=== PATIENT | male | born 1955 | race Asian ===

== ENCOUNTER 2024-06-18 11:55 | Inpatient (IN) | payer MEDICARE, SELFPAY ==
[2024-06-17] VITALS (10 sets, daily range): BP systolic 112–155; BP diastolic 63–99; BMI 26.3; BMI 25.1
[2024-06-17 11:30] LABS: % Basophils 0.3 % (0-2); % Eosinophils 0.6 % (0-6); % Immature Granulocytes 0.3 % (0-0.5); % Lymphocytes 11.8 % (20.5-51.1); % Monocytes 3.8 % (1.7-9.3); % Neutrophils 83.2 % (42.2-75.2); Absolute Eosinophils 0.1 10^3/uL (0-0.7); Absolute Lymphocytes 1.3 10^3/uL (1.2-3.4); Absolute Monocytes 0.4 10^3/uL (0.1-0.6); Hematocrit 40.1 % (39.0-52.0); Hemoglobin 12.6 g/dL (13.0-18.0); Mean Corp Hgb Conc. 31.4 g/dL (33.0-37.0); Mean Corpuscular Hgb 24.3 pg (27.0-31.0); Mean Corpuscular Volume 77.4 fL (80.0-94.0); Mean Platelet Volume 8.9 fL (7.4-10.4); Nucleated Red Blood Cells % 0 % (-); Platelet Count 277 10^3/uL (130-400); Red Blood Cell Count 5.18 10^6/uL (4.70-6.10); Red Cell Dist. Width 15.4 % (11.5-14.5); White Blood Cell Count 10.8 10^3/uL (4.8-10.8)
[2024-06-17 11:42] LABS: ALT (SGPT) 44 U/L (0-50); AST (SGOT) 29 U/L (17-59); Albumin 4.4 g/dl (3.5-5.0); Alkaline Phosphatase 66 U/L (38-126); Blood Urea Nitrogen 18 mg/dl (9-20); Calcium 8.9 mg/dl (8.4-10.2); Carbon Dioxide 28 mmol/L (22-30); Chloride 102 mmol/L (98-107); Glucose 125 mg/dl (70-99); Lipase 142 U/L (23-300); Potassium 4.1 mmol/L (3.5-5.1); Sodium 138 mmol/L (135-145); Total Bilirubin 0.5 mg/dl (0.2-1.3); eGFR > 60.00
--- NOTE | 2024-06-17 13:36 | ED.GENMED ---
History of Present Illness
General
Chief Complaint: Abdominal Pain
Time Seen by Provider: 06/17/24 13:10
History of Present Illness
History of Present Illness:
68-year-old male presents to the emergency department for evaluation of right lower quadrant pain and abdominal distention that began this morning. Returned last night from a long international trip to [facility] in [facility]. Denies any fevers or
chills. Had 1 episode of vomiting, denies any diarrhea. No prior abdominal surgical history.
Review of Systems
Review of Systems
Allergies reviewed?: Yes
All Other Systems: ROS reviewed and negative except as documented in HPI and ROS
Phy Exam
Physical Exam
Physical Exam:
GEN: Well appearing, NAD, WDWN
HEENT: Oral mucosa moist, no scleral icterus
Cardiac: Regular rate
Lung: No respiratory distress, no tachypnea
Abdomen: Soft, mild distention noted, diffuse tenderness but predominantly in the right lower quadrant
MSK: No gross deformity or injuries
Skin: Good color, no pallor or jaundice, no rashes
Neuro: AO x3, moves all extremities freely
Psych: Calm, cooperative
Course
Orders/Labs/Results
Orders:
Orders
06/17/24 11:19
C-Reactive Protein Urgent
Comment: ADD ON
CMP [Comprehensive Metabolic Panel] Urgent
Complete Blood Count/With Diff Urgent
Lipase Urgent
06/17/24 13:35
CT Abd/Pel (IV only)-DH only Urgent
Comment:
Reason For Exam: RLQ pain
06/17/24 Dinner
NPO
Allow oral meds: No
Allow clear liquids: No
06/17/24 15:32
Add On- LAB Urgent
Tests Added?: CRP
06/17/24 15:47
Urinalysis Reflex To Culture Urgent
Date Specimen was Collected: 06/17/24
Time Specimen was Collected: 15:46
06/17/24 16:20
Piperacillin/Tazo 3.375 Gram [Zosyn] 3.375 gram in 50 ml IV NOW
06/17/24 17:21
Lidocaine HCl/Pf [Xylocaine-Mpf 1% Vial] 50 mg .ROUTE .STK-MED ONE
Propofol [Diprivan] 20 ml .ROUTE .STK-MED
Rocuronium [place] [Rocuronium] 50 mg .ROUTE .STK-MED ONE
06/17/24 17:25
HYDROmorphone [Dilaudid] 0.25 mg IV PACU-Q5MPRN PRN
HYDROmorphone [Dilaudid] 0.5 mg IV PACU-Q5MPRN PRN
Meperidine [Demerol] 12.5 mg IV PACU-Q5MPRN PRN
Ondansetron Injectable [Zofran] 4 mg IV PACU-ONCEPRN PRN
Prochlorperazine [Compazine] 5 mg IV PACU-ONCEPRN PRN
Notify MD As Directed
Notify physician if: for SDS patients with known or suspected sleep obstructive sleep apnea, monitor in the
PACU.
Notify MD for any apneic/desaturation episodes
O2 Therapy [RESP] Urgent
Titrate/Wean O2 to maintain O2 sat greater than (%): 92
Special Instructions: -Provide supplemental oxygen to achieve O2 sat of 92% or greater.
-After 15 min, may wean O2 and discontinue if patient is able to maintain O2 sat of 92%
or greater during recovery period.
If patient is a discharge home, without oxygen therapy, notify anestheiologist if
unable to maintain O2 SAT of 92% or greater on room air for MD clearance.
06/17/24 17:30
Normosol (Mult Electrolytes) [Normosol-R/Plasmalyte-A] 1,000 ml IV PER PROTOCOL
06/17/24 17:33
Admit Patient As Directed
Co-Sign Provider:
Level of Care: Post Proc/Surg Recovery
Assign to:: Medical/Surgical
Physician / Group: Jalil/ surg
Diagnosis: Acute appendicitis
Reason for Overnight Stay: Standard of Care
Code Status As Directed
Resuscitation Status: Full Code
Acetaminophen [Tylenol] 650 mg PO Q4HPRN PRN
HYDROmorphone [Dilaudid] 0.5 mg IV Q4HPRN PRN
Ketorolac [Toradol] 10 mg IV Q6HPRN PRN
Ondansetron Injectable [Zofran] 4 mg IV Q6HPRN PRN
Oxycodone [Roxicodone] 5 mg PO Q4HPRN PRN
Activity As Directed
Activity Level: Out of Bed-Early Mobility
Anti-embolism (YELENA) Hose As Directed
Type: Thigh high
Intake/ Output As Directed
Frequency: Per unit guidelines
Pneumatic Compression Sleeves As Directed
Type: Knee high
Vital Signs As Directed
Frequency: Per unit guidelines
06/17/24 17:34
PRN Pain Medication Management As Directed
May give lesser potent ordered pain med per pt: Yes
preference::
Protocol:: Medication orders for pain may be administered in a
manner that supports deferring to patient preference
when the pt is:
- Requesting an ordered lesser potent pain medication.
Least to most potent pain medications are defined
as: acetaminophen < NSAID < tramadol < opioids
(morphine, oxycodone, hydromorphone).
- Requesting a lesser dose of the same medication IF
ORDERED.
- Requesting a less intrusive route of administration
if both routes are prescribed by the provider (PO <
IV).
Rx Incentive Spirometry [RESP] Routine
Frequency: q1h while awake
# of times per hour: 10
DX Deep Vein Thrombosis Video Routine
06/17/24 17:45
0.9% Sodium Chloride 1000 ml [Nss] 1,000 ml IV 80 mls/hr
06/17/24 22:00
Piperacillin/Tazo 3.375 Gram [Zosyn] 3.375 gram in 50 ml IV Q6H
Abnormal Lab Results
06/17/24
11:19
Hgb 12.6 L g/dL
(13.0-18.0)
MCV 77.4 L fL
(80.0-94.0)
MCH 24.3 L pg
(27.0-31.0)
MCHC 31.4 L g/dL
(33.0-37.0)
RDW 15.4 H %
(11.5-14.5)
Absolute Neuts (auto) 9.0 H 10^3/uL
(1.4-6.5)
Neutrophils % 83.2 H %
(42.2-75.2)
Lymphocytes % 11.8 L %
(20.5-51.1)
Glucose 125 H mg/dl
(70-99)
06/17/24 11:19
06/17/24 11:19
Vital Signs
Initial and Last Documented VS:
Initial Vital Signs
Temp Pulse Resp BP Pulse Ox
98.0 F 92 16 155/99 100
06/17/24 11:12 06/17/24 11:12 06/17/24 11:12 06/17/24 11:12 06/17/24 11:12
Last Documented Vital Signs
Temp Pulse Resp BP Pulse Ox
99.8 F 102 16 136/84 93
06/17/24 19:47 06/17/24 19:47 06/17/24 19:47 06/17/24 19:47 06/17/24 19:47
MDM/Problems Addressed
MDM/Problems Addressed:
Imaging reveals acute appendicitis. Will be admitted to the surgical service for further management
*Critical Care Note
Total Time (30-74mins, 75-104mins- exclusive of procedures): Not Applicable
ED Attending Note
-
Portions of this chart may have been created with voice recognition software.� Occasional wrong word or��sound alike� substitutions may have occurred due to the inherent limitations of voice recognition software.
Discharge Plan
Departure
Patient Disposition: Admit
Date of Disposition: 06/17/24
Time of Disposition: 16:28
Presentation/result/management discussed w/ accepting MD/DO: General Surgery
Discharge Problem:
Acute appendicitis
Interventions
Interventions:
*Risk Screen - Suicide Last Done: 06/17/24 19:43
*General Assessment Last Done: 06/17/24 13:38
*Neglect/Abuse Screening Last Done: 06/17/24 11:12
ED- Fall Risk Assessment Last Done: 06/17/24 13:37
*ED COVID-19 Vaccine History Last Done: 06/17/24 19:43
*Nursing Disposition Last Done: 06/17/24 19:26
DS-Pfacmz-Auhfuanjpe Assessment Last Done: 06/17/24 13:38
Discharge Date and Time
Discharge Date/Time: 06/17/24 19:26
[2024-06-17 15:55] LABS: Urine Albumin Negative (Neg - Trace); Urine Bilirubin Negative (Negative); Urine Character Clear (Clear); Urine Color Straw; Urine Glucose Negative (Negative); Urine Ketone Negative (Negative); Urine Leukocyte Negative (Negative); Urine Nitrite Negative (Negative); Urine Occult Blood Negative (Negative); Urine Urobilinogen Negative (Neg - 1+)
[2024-06-17] MEDS: ZOSYN 50 IV ×2 (16:28→22:04)
--- NOTE | 2024-06-17 17:15 | W.SUR.PREOP ---
Pre-Operative Surgical Note
-
I have examined this patient prior to the performance of the scheduled procedure.
The patient's condition is unchanged from the time of the current History and
Physical and the patient is able to undergo the scheduled procedure.
--- NOTE | 2024-06-17 17:33 | HPS.HSE ---
Addendum entered and electronically signed by Dylan Jimenes MD 06/17/24 19:52:
I saw and examined the patient independently.
The Product Technology Scientist's note was reviewed and I agree with the note, assessment and plan except where noted below.
Comment: This is a 68-year-old male with no significant past medical or surgical history who presents with 1 day history of right lower quadrant abdominal pain found to have acute appendicitis on CT. His exam is fairly concerning with significant
focal tenderness but he is soft and the other quadrants. I am somewhat suspicious of perforated appendicitis given his exam though his imaging is fairly reassuring.
Given OR time constraints, will plan for laparoscopic appendectomy in the OR tomorrow.
N.p.o., IV fluids, IV Zosyn.
Pain control
Admit to general surgery service.
Risks/Benefits/Alternatives, expected postoperative course and possible complications (bleeding, infection, injury to surrounding structures, acute/chronic pain) discussed at length. Patient wishes to proceed with surgery. All questions answered.
Consent obtained.
I spent 75 minutes in total for the care of this patient today including direct patient care and counseling, reviewing labs, imaging, coordination of care, as well as documentation.
Original Note:
Family Physician
-
Family Physician: Olu Singleton
Chief Complaint
-
RLQ pain
History of Present Illness
68 yo male with no prior surgical history on no home medications who presents with RLQ abdominal pain and distention since early this morning. He notes that the pain is quite severe with significant tenderness present on exam He denies fevers or
chills. He does note he vomited x1 but denies active nausea. He denies bowel changes.
Medical History
Past Medical History
Past Medical History: Reports None
Past Surgical History: Reports None and Other (colonoscopy 2019 with polypectomy)
Social History
Tobacco: Non-smoker
Alcohol: None
Family History
Family History: Not pertinent
Allergies / Home Medications
Allergies reflects when Allergies were last updated in [facility].
Home Medications with original date entered in [facility]
Allergy/Medication List:
Patient Allergies
Allergy/AdvReac Type Severity Reaction Status Date / Time
No Known Allergies Allergy Unverified 06/17/24 11:11
�Medication �Instructions �Recorded �Confirmed �Type
No Meds [No Current Medications] 06/17/24 06/17/24 History
Review of Systems
-
History Source: Patient
A 12 point ROS was completed and negative except as noted: Yes
Physical Exam
Vital Signs
Vital Signs
Temp Pulse Resp BP Pulse Ox
98.0 F 92 16 119/74 100
06/17/24 11:12 06/17/24 11:12 06/17/24 11:12 06/17/24 17:00 06/17/24 11:12
Physical Exam
General: Well Developed and Well Nourished
HEENT: Moist mucous membranes
Respiratory: Non Labored Respirations
GI: Soft, Tender (RLQ, +rovsing sign) and Distended
Skin: Warm and Dry
Neuro: Awake, Alert and AO x 3
Laboratory Results
-
06/17/24 11:19
06/17/24 11:19
Laboratory Results
Total Bilirubin 0.5 mg/dl (0.2-1.3) 06/17/24 11:19
AST 29 U/L (17-59) 06/17/24 11:19
ALT 44 U/L (0-50) 06/17/24 11:19
Alkaline Phosphatase 66 U/L (38-126) 06/17/24 11:19
Lipase 142 U/L (23-300) 06/17/24 11:19
Data Reviewed
-
CT Scan: Image Personally Visualized and interpreted, Report Reviewed by me, Discussed with Physician, Discussed with Nurse and Discussed with Patient
Lab Data: Labs Reviewed by me, Discussed with Physician and Discussed with Patient
Old Records: Reviewed
Impression/Plan
-
IMPRESSION:
68 yo male presenting with RLQ and vomiting with exam and CT imaging consistent with acute appendicitis. No leukocytosis or fevers. ABX initiated in the ED
PLAN:
NPO for OR tentatively later this evening vs tomorrow morning
Analgesics and Antiemetics prn
Continue IV ABX with IV Zosyn
IV NSS at 80ml/hr while NPO
SCDS for VTE ppx
[2024-06-17 17:46] LABS: C-Reactive Protein < 5.00 mg/L (0.0-10.00)
[2024-06-17] MEDS: NSS 1000 IV (20:26)
[2024-06-18] VITALS (11 sets, daily range): BP systolic 10–131; BP diastolic 59–82
[2024-06-18] MEDS: ZOSYN 50 IV ×4 (04:10→23:15)
--- NOTE | 2024-06-18 09:36 | W.IMMPOSTOP ---
Surgical Immed Post Op Note
-
Primary Surgeon: Dylan Jimenes MD
Assisting Surgeon: None
Pre-op Diagnosis: Acute appendicitis
Post-op Diagnosis: Perforated appendicitis, intra-abdominal abscess
Procedure Performed:
1. Laparoscopic appendectomy
2. Drainage of an intra-abdominal abscess
Anesthesia Type: General
Specimen / Cultures:
1. Appendix
2. Right lower quadrant abscess
Estimated Blood Loss: 7 cc
Complications: None
Operative Findings: Acutely inflamed suppurative and perforated appendicitis with right lower quadrant intra-abdominal abscess. Abscess drained and cultures taken. Base involved, taken with a 45 mcgregor load on the Endo CANELO stapler. 19 [place] round
Zan drain placed through the left lower quadrant port across the pelvis and up the right colic gutter. This was secured to the skin with a 2-0 nylon suture.
POST OP PLAN:
Imaging: None
Labs: Routine AM
Diet: Will start on clears, high risk for developing an ileus
Analgesia: Tylenol 650mg q6 Svetlana, Toradol as needed, Dilaudid 0.5mg q2h PRN
Neuro/vascular checks: q4h
AC/AP: Hold Therapeutic AC, Ok for DVT PPx
Activity: Ad Elisha
Wound/Incisions/Drains: Routine, SKY to bulb suction
Abx: Continue antibiotics x 4 days
Dispo: RNF, anticipate will 1-2 more days in the hospital pending clinical course.
--- NOTE | 2024-06-18 09:44 | OR.RPT ---
Operative Report
Operative Report
Patient Name: Zach Giraldo
: 1955
Date of Operation: 06/18/2024
Pre-op Diagnosis: Acute appendicitis
Post-op Diagnosis: Perforated appendicitis, intra-abdominal abscess
Procedure Performed:
1. Laparoscopic appendectomy
2. Drainage of an intra-abdominal abscess
Surgeon(s):
Dr. Jimenes
Checker(s):
None
Anesthesia Type: General
Specimen / Cultures:
1. Appendix
2. Right lower quadrant abscess
Estimated Blood Loss: 7 cc
Drains/Lines/Implants: 19 Citizen [place] round Zan drain
Complications: None
HPI/Surgical Indications:
This is a 68-year-old male who presents with a 1 day history of abdominal pain. Exam, labs and imaging are consistent with acute appendicitis. Risks/Benefits/Alternatives were discussed at length, and the patient agreed to proceed with surgery.
Operative Findings: Acutely inflamed suppurative and perforated appendicitis with right lower quadrant intra-abdominal abscess. Abscess drained and cultures taken. Base involved, taken with a 45 blanco load on the Endo CANELO stapler. 19 [place] round
Zan drain placed through the left lower quadrant port across the pelvis and up the right colic gutter. This was secured to the skin with a 2-0 nylon suture.
Procedure Description:
The patient was placed in the supine position, with the left arm tucked, and general anesthesia was induced. The abdomen was prepared and draped in a sterile fashion so as to expose the entire abdomen. A surgical time out was taken. Abdominal access
was obtained with an 12 mm infra-umbilical Moreno Entry. After confirming no injury on entrance, two additional 5mm ports were placed in the suprapubic area just off midline and in the left lower quadrant. The patient was placed in Trendelenberg
with the right slightly up . The appendix was identified and noted to be suppurative, inflamed and perforated with a right lower quadrant abscess extending down to the pelvis. After culturing this fluid and suctioning it up, a laparoscopic bipolar
energy device was used to divide the mesoappendix. The base of the appendix appeared involved and was ligated/divided using a 45 Blanco Endo CANELO stapler. The appendix was placed in a specimen retrieval bag. There was a little bit of bleeding from the
mesentery stump that appeared to stop on its own but Surgiflo was applied to the area to ensure hemostasis. We then passed a 19 Citizen [place] round Zan drain through the left lower quadrant port across the pelvis and up the right colic gutter. This was
secured at the skin with a 2-0 nylon suture. Hemostasis was confirmed and the remaining ports were removed under visualization. The specimen was passed off the field. The umbilical port was closed with a [id number] 0-PDS and the skin for all
ports was closed with interrupted monocryls and covered with dermabond. The patient was awoken from anesthesia in good condition and transported to the recovery area.
I was the attending physician and performed the procedure with no assistance. I was present for all portions of the case.
Dylan Jimenes MD
--- NOTE | 2024-06-18 10:43 | CM ---
Addendum entered by Linn Velasquez RN 06/18/24 10:50:
CM spoke with spouse via telephone. Patient with SKY drain. Possible need for VN if going home with drain in place.
Original Note:
Reviewed the chart notes. Patient currently to OR today for lap appy. Patient resides with spouse in a two story home with two steps to enter. The patient uses no DME/VN/SNF. CM continues to be available to patient/family and is monitoring
medical plan for needs at discharge.
Plan: Discharge to home when medically stable. No needs anticipated.
--- NOTE | 2024-06-18 10:55 | PTCARENOTE ---
Pt received from the PACU via bed. Transport was w/o incident. Pt is awake and drowsy, able to make needs known. Pt denies pain or nausea at this time. Pt's left abd with gauze dressing and SKY drain. Drain with scant amount of sanquinous fluid
noted. Pt, and daughter instructed on SKY drain. Pt also with 2 lap sites on upper abd and at umbilicus. Incisions are well approximated, with surgi glue, no drainage noted. VSS, Pt is afebrile. Pt resting quietly, call courtney within reach.
[2024-06-18] MEDS: NSS 1000 IV (11:21)
[2024-06-18] MEDS: TORADOL 10 MG IV ×2 (14:55→23:03)
[2024-06-18] MEDS: TYLENOL 650 MG PO ×2 (14:55→17:13)
[2024-06-19] MEDS: NSS 1000 IV (01:04)
[2024-06-19] MEDS: TYLENOL PO (01:53)
[2024-06-19 02:48] VITALS: BP 105/65
[2024-06-19] MEDS: ZOSYN 50 IV ×4 (04:22→21:57)
[2024-06-19] MEDS: TYLENOL 650 MG PO ×3 (05:51→17:16)
[2024-06-19 07:00] VITALS: BP 99/63
[2024-06-19 07:19] LABS: % Basophils 0.1 % (0-2); % Immature Granulocytes 0.4 % (0-0.5); % Lymphocytes 5.7 % (20.5-51.1); % Neutrophils 88.8 % (42.2-75.2); Absolute Immature Granulocytes 0.1 10^3/uL (0-0.05); Absolute Lymphocytes 0.9 10^3/uL (1.2-3.4); Absolute Monocytes 0.8 10^3/uL (0.1-0.6); Absolute Neutrophils 13.2 10^3/uL (1.4-6.5); Hematocrit 35.5 % (39.0-52.0); Hemoglobin 11.3 g/dL (13.0-18.0); Mean Corp Hgb Conc. 31.8 g/dL (33.0-37.0); Mean Corpuscular Hgb 24.4 pg (27.0-31.0); Mean Corpuscular Volume 76.7 fL (80.0-94.0); Mean Platelet Volume 9.7 fL (7.4-10.4); Nucleated Red Blood Cells % 0 % (-); Platelet Count 278 10^3/uL (130-400); Red Blood Cell Count 4.63 10^6/uL (4.70-6.10); Red Cell Dist. Width 15.9 % (11.5-14.5); White Blood Cell Count 14.9 10^3/uL (4.8-10.8)
[2024-06-19 07:28] LABS: Blood Urea Nitrogen 21 mg/dl (9-20); Calcium 8.2 mg/dl (8.4-10.2); Carbon Dioxide 24 mmol/L (22-30); Chloride 101 mmol/L (98-107); Estimated Creatinine Clearance 66 ml/min; Glucose 96 mg/dl (70-99); Sodium 136 mmol/L (135-145); eGFR > 60.00
--- NOTE | 2024-06-19 10:40 | W.PN.GS2 ---
Today's Communication / Plan
-
diet as tolerated
continue SKY drain and abx
Assessment / Plan
-
68 yo male presenting with perforated appendicitis now POD #1 lap appi
Afebrile, BP low normal, no tachycardia
Leukocytosis present
SKY with purulent outputs, output 70ml since OR
High risk for ileus but currently passing flatus/tolerating liquids
--Regular diet as tolerated, asked patient to go very slow
--Continue IV abx
--Ambulate as able
--Analgesics as needed
--Lovenox sq for VTE ppx
Subjective Data
-
Date of Service: June 19, 2024
Patient seen and examined at bedside with Dr. Philip. French n/v. Hiccups started this morning. Passing flatus. Tolerating clears.
Objective Data
-
Intake and Output
06/18/24 06/19/24 06/20/24
06:59 06:59 06:59
Intake Total 1810 / 1810
Output Total 620 / 620
Balance 1190 / 1190
Intake:
Oral fluids 960 / 960
IV fluids (Total) 700 / 700
Normosal 200 / 200
IV piggybacks 150 / 150
Output:
Drain Output (Total) 70 / 70
Left Abdomen Jw-[place] 70 / 70
Urine, Voided 550 / 550
Other:
Number of approximated MODERATE 2
amounts of urine
Vital Signs
Temp Pulse Resp BP Pulse Ox
97.4 F 79 16 99/63 98
06/19/24 07:00 06/19/24 07:00 06/19/24 07:00 06/19/24 07:00 06/19/24 07:00
Lab Results
06/19/24 06:03
06/19/24 06:03
Calcium 8.2 mg/dl (8.4-10.2) L 06/19/24 06:03
Total Bilirubin 0.5 mg/dl (0.2-1.3) 06/17/24 11:19
AST 29 U/L (17-59) 06/17/24 11:19
ALT 44 U/L (0-50) 06/17/24 11:19
Alkaline Phosphatase 66 U/L (38-126) 06/17/24 11:19
Total Protein 7.0 g/dl (6.3-8.2) 06/17/24 11:19
Albumin 4.4 g/dl (3.5-5.0) 06/17/24 11:19
Physical Exam
-
NAD
ABD soft, mod distention, minimal tenderness
Incisions clear, dry, intact
SKY with cloudy blood tinged fluid
[2024-06-19 11:13] VITALS: BP 109/70
[2024-06-19 15:10] VITALS: BP 113/65
--- NOTE | 2024-06-19 16:05 | CM ---
Met with pt at bedside
Status changed to Inpatient - pt updated - given IMM
Offered VN at discharge - receptive to VN. No preference
TT sent to [facility] Liaison for HH needs
Plan - anticipate home with [facility] when medically stable
[2024-06-19] MEDS: LOVENOX 40 MG SC (17:16)
--- NOTE | 2024-06-19 18:32 | PTCARENOTE ---
Patient ambulating in halls with a steady gait, tolerating regular diet, passing flatus. Denies need for pain med. SKY draining cloudy pink fluid.
[2024-06-19 23:05] VITALS: BP 137/81
[2024-06-20] MEDS: TYLENOL 650 MG PO ×3 (01:00→12:08)
[2024-06-20] MEDS: ZOSYN 50 IV ×3 (04:22→17:24)
[2024-06-20 06:40] VITALS: BP 132/66
[2024-06-20 07:06] LABS: % Basophils 0.3 % (0-2); % Eosinophils 0.9 % (0-6); % Immature Granulocytes 0.1 % (0-0.5); % Lymphocytes 11.3 % (20.5-51.1); % Monocytes 7.1 % (1.7-9.3); % Neutrophils 80.3 % (42.2-75.2); Absolute Eosinophils 0.1 10^3/uL (0-0.7); Absolute Lymphocytes 0.8 10^3/uL (1.2-3.4); Absolute Monocytes 0.5 10^3/uL (0.1-0.6); Absolute Neutrophils 5.5 10^3/uL (1.4-6.5); Hematocrit 32.6 % (39.0-52.0); Hemoglobin 10.2 g/dL (13.0-18.0); Mean Corp Hgb Conc. 31.3 g/dL (33.0-37.0); Mean Corpuscular Hgb 24.1 pg (27.0-31.0); Mean Corpuscular Volume 77.1 fL (80.0-94.0); Mean Platelet Volume 9.7 fL (7.4-10.4); Nucleated Red Blood Cells % 0 % (-); Platelet Count 241 10^3/uL (130-400); Red Blood Cell Count 4.23 10^6/uL (4.70-6.10); Red Cell Dist. Width 15.7 % (11.5-14.5); White Blood Cell Count 6.8 10^3/uL (4.8-10.8)
--- NOTE | 2024-06-20 07:33 | W.PN.GS2 ---
Addendum entered and electronically signed by Bryant Paige MD 06/20/24 18:27:
Patient has tolerated his regular diet. Passing flatus and moving bowels. OK for DC. Given murky nature of SKY output plan for additional drainage and likely removal in the office later this week. Plan for PO Augmentin.
Original Note:
Today's Communication / Plan
-
--Regular diet as tolerated, instructed to go slow and will back down if recurrent symptoms
--Likely monitor in hospital for today for ileus watch and drain care
Assessment / Plan
-
Patient is a 68 yo M p/w perforated appendicitis now POD #2 laparoscopic appendectomy
Afebrile, BP low normal, no tachycardia
Leukocytosis resolved
SKY with 185 cc seropurulent output, maintain for now
Likely mild ileus symptoms given bloating and distention yesterday evening, symptoms have improved and is passing multiple bowel movements and flatus, would monitor for dietary tolerance throughout the day
--Regular diet as tolerated, instructed to go slow and will back down if recurrent symptoms
--Pain control: Tylenol, Toradol, Oxycodone
--Continue IV abx, plan for 4 days total post-op
--OOB/ambulate
--DVT: Lovenox
--Likely monitor in hospital for today for ileus watch and drain care
Subjective Data
-
Date of Service: June 20, 2024
Reports of bloating and abdominal distention yesterday afternoon/evening. Multiple bowel movements and passage of flatus overnight. No nausea or vomiting. This AM he reports a suppressed appetite though his abdominal distention is improved. No
fevers or chills. Ambulating. Voiding.
Objective Data
-
Intake and Output
06/19/24 06/20/24 06/21/24
06:59 06:59 06:59
Intake Total 1810 / 1810 900 / 900
Output Total 620 / 620 185 / 185
Balance 1190 / 1190 715 / 715
Intake:
Oral fluids 960 / 960 600 / 600
IV fluids (Total) 700 / 700 100 / 100
Normosal 200 / 200
IV piggybacks 150 / 150 200 / 200
Output:
Drain Output (Total) 70 / 70 185 / 185
Left Abdomen Jw-[place] 70 / 70 185 / 185
Urine, Voided 550 / 550
Other:
Number of approximated MODERATE 2 3
amounts of urine
Vital Signs
Temp Pulse Resp BP Pulse Ox
99.3 F 74 18 132/66 97
06/20/24 06:40 06/20/24 06:40 06/20/24 06:40 06/20/24 06:40 06/20/24 06:40
Lab Results
06/20/24 06:01
Calcium 8.2 mg/dl (8.4-10.2) L 06/19/24 06:03
Total Bilirubin 0.5 mg/dl (0.2-1.3) 06/17/24 11:19
AST 29 U/L (17-59) 06/17/24 11:19
ALT 44 U/L (0-50) 06/17/24 11:19
Alkaline Phosphatase 66 U/L (38-126) 06/17/24 11:19
Total Protein 7.0 g/dl (6.3-8.2) 06/17/24 11:19
Albumin 4.4 g/dl (3.5-5.0) 06/17/24 11:19
Physical Exam
-
Gen: NAD
Abd: soft, NT, mild/moderate distension, tympany, non-peritoneal, incisions c/d/i - no erythema or drainage, mild ecchymosis, SKY serous with some mild fibrinous murky material
[2024-06-20 07:42] LABS: Blood Urea Nitrogen 16 mg/dl (9-20); Calcium 7.7 mg/dl (8.4-10.2); Carbon Dioxide 24 mmol/L (22-30); Chloride 102 mmol/L (98-107); Estimated Creatinine Clearance 73 ml/min; Glucose 93 mg/dl (70-99); Potassium 3.6 mmol/L (3.5-5.1); Sodium 135 mmol/L (135-145); eGFR > 60.00
--- NOTE | 2024-06-20 09:06 | VNURNOTE ---
Home Health Liaison met with patient, spouse and daughter at bedside to discuss [facility] nurse/therapy, visits, schedule and homebound status. All are agreeable and understand that visits at home will be 2-3 x per week to assess and teach medical and
drain management. [facility] brochure provided with contact information. All are aware that [facility] will contact them for start of care in 1-2 days after discharge from .
[facility] referral accepted in [facility] Port.
--- NOTE | 2024-06-20 15:41 | CM ---
Chart reviewed
Diet advanced
[facility] to follow at discharge
Plan - anticipate home with [facility] when medically ready
[2024-06-20 18:07] VITALS: BP 142/84
--- NOTE | 2024-06-20 18:48 | PTCARENOTE ---
pt tolerated regular diet today, passing flatus and had a soft normal brown stool today. endorses no pain or nausea. pt, and daughter educated concerning SKY drain care, dressing changes and recording drainage. pt states abdomen feels much
less distended this evening.
pt discharged to home with daughter. verbalized understanding.
--- NOTE | 2024-06-23 09:59 | W.DCSUMMARY ---
Discharge Summary
Discharge Data
Date of Admission: 06/17/24
Date of Discharge: 06/20/24
-
Pending Results: No
Hospital Course
Mr Giraldo is a 68 yo male who presented through the emergency department with acute appendicitis. He was initiated on IV antibiotics and taken to the OR for laparoscopic appendectomy with perforation noted intraoperatively and, therefore, a SKY drain
was left in place. He did well in the initial post operative period and diet was able to be slowly advanced and well tolerated with good pain control. SKY outputs did remain somewhat murky and the drain was left in place upon discharge for removal in
the outpatient setting. He was continued on oral antibiotics for an additional 3 days upon discharge.
Discharge Plan
-
Patient Disposition: Home (Routine Discharge)
Discharge Diagnosis/Procedures: Appendicitis status post laparoscopic appendectomy
Condition: Good
Diet: As tolerated and Regular
Activity: No strenuous activity
Bathing Restrictions: OK to Shower
Wound Care: Keep incisions clean and dry. Record SKY outputs and monitor color.
Activity Restrictions/Additional Instructions:
Instructions following Laparoscopic appendectomy
Please call [phone] if you have any questions or concerns after your surgery.
Wound Care:
Your incisions are covered with skin glue which will come off on it�s own in 5-10 days.
It is ok to shower the day after your surgery. Do not scrub the incisions, let soap and water wash over them and pat dry.
� Bruising around your incisions is normal.
� Using ice packs will help minimize this swelling.
� No swimming or soaking incisions for 1 week.
� Your stitches will dissolve and do not need to be removed.
Urinary retention:
If you are unable to urinate 6-8 hours after your surgery, please call [phone] to discuss further management.
Activity:
No heavy lifting more than 15 pounds for the next 3 weeks, then you may gradually lift heavier objects as tolerated by discomfort. Otherwise activity as tolerated by your comfort level.
Pain Management:
Use Tylenol, ibuprofen and ice packs to treat your pain.
� You may take 650 milligrams of Tylenol (Max 3 grams per day) every 6 hours, and 600 mg of ibuprofen also every 6 hours. (you can alternate them every 3 hours)
� You may use an ice pack to your incision as needed.
� If you still have pain not controlled by these measures, take your prescription pain medication as prescribed.
Medications:
You may resume your home medications.
Bowel Medications:
Prescription pain medication can make you constipated. If you take this medication, also take colace 100 mg twice daily (this is over the counter). If this is not sufficient, you may take Miralax (polyethylene glycol) to help move your bowels.
Diet:
After your procedure, there are no dietary restrictions.
Driving restrictions:
No driving if you are taking prescription pain medication or if you think your normal reaction time and attentiveness has been slowed by your surgery.
Things to Look out for:
Worsening Abdominal pain, redness or drainage from incision
Call Doctor for:
Please call if you notice worsening redness or drainage from incision(s) lasting longer than 5 days after your surgery, any foul-smelling drainage from the incision, pain not controlled by pain medications, persistent nausea and vomiting, or for any
fevers greater than 101.3 F. The number for questions/concerns is [phone]
Follow-up:
Follow-up appointment will be scheduled with your surgeon in 3-4 weeks. Please call prior to your appointment if you have any questions or concerns. [phone]
Instructions: How to care for a closed suction drain
Referrals:
Olu Singleton DO [Family Provider] -
Dylan Jimenes MD [Active] - in two days (SKY removal)
Prescriptions:
New
acetaminophen 325 mg tablet
650 mg PO Q4HPRN PRN (Reason: mild pain) Qty: 1 0RF
ibuprofen 200 mg tablet
400 - 600 mg PO Q6HPRN PRN (Reason: moderate pain) Qty: 1 0RF
amoxicillin-pot clavulanate 875-125 mg tablet
1 tab PO Q12 3 Days Qty: 6 0RF
oxycodone 5 mg tablet
5 mg PO Q4HPRN PRN (Reason: breakthrough/severe pain) Qty: 5 0RF
Discharge Orders:
Discharge Patient (As Directed); Ordered 06/20/24
Ordered By: Bryant Paige
Discharge Date and Time
Discharge Date/Time: 06/20/24 19:33
Print Language: GEORGIAN
== END 2024-06-20 19:33 | disposition home health service (06) | DRG 399 ==
LOC: 2 SOUTH 11:55
PROVIDERS: Physician Assistant; ADMITTING PHYSICIAN Surgery; EMERGENCY PHYSICIAN Emergency Medicine; FAMILY PHYSICIAN Family Medicine
PROC: 0DTJ4ZZ Resection of Appendix, Percutaneous Endoscopic Approach (ICD-10-PCS; 2024-06-18)
DX: K35.33 Acute appendicitis with perforation, localized peritonitis, and gangrene, with abscess (principal)
CPT/HCPCS: 88304; 74177; 80048; 80053; 81003; 83690; 85025; 86140; 87070; 87075; 87077; 87186; 87205; 96365; 99284; C1776; Q9967